=== PATIENT | female | born 1940 | race Caucasian/White ===

== ENCOUNTER 2020-04-15 04:24 | Day surgery (SDC) | payer OTHER, BC ==
[2020-04-11 14:54] VITALS: BMI 24.4
[2020-04-15 11:45] VITALS: TEMP 97.8
[2020-04-15 12:27] VITALS: BP 141/75; PULSE 68
== END 2020-04-15 12:35 | disposition home or self-care (01) ==
LOC: JASU-SURG 04:24
PROVIDERS: ATTEND Internal Medicine Gastroenterology
PROC: 0DJD8ZZ Inspection of Lower Intestinal Tract, Via Natural or Artificial Opening Endoscopic (ICD-10-PCS; principal; 2020-04-15 11:05)
DX: Z12.11 Encounter for screening for malignant neoplasm of colon (principal); K57.80 Diverticulitis of intestine, part unspecified, with perforation and abscess without bleeding; K64.8 Other hemorrhoids